=== PATIENT | male | born 1965 | race Caucasian/White ===

== ENCOUNTER 2017-07-17 14:18 | Emergency (ER) ==
[2017-07-17 14:26] VITALS: TEMP 98; BMI 32.1
[2017-07-17 14:41] VITALS: BP 166/95
[2017-07-17] MEDS ORDERED: LIDOCAINE HCL 1% SDV SUBCUT STA (14:47)
[2017-07-17] MEDS ORDERED: LIDOCAINE HCL 1% SDV ONE (14:47)
--- NOTE | 2017-07-17 14:48 | ED.PDOC ---
General ED Provider: Dr. SOPHIE PRADO Chief Complaint: Head Injury Stated Complaint: Fell striking head on pavement. Forehead laceration with bleeding. Bandaged. NO LOC. NO Nausea or vomiting. Time Seen by Physician: 14:35 Mode of Arrival: Walk-In Information Source: Patient Exam Limitations: No limitations Referred to ED by: Other Nursing and Triage Documentation Reviewed and Agree: Yes Reviewed sepsis parameters & appropriate labs ordered?: Yes System Inflammatory Response Syndrome: Not Applicable Sepsis Protocol: For patient's 13 years and over: Temp is 96.8 and below OR 101 and greater Pulse >90 BPM Resp >20/minute Acutely Altered Mental Status Are patient's symptoms suggestive of a new infection, such as: -Pneumonia -Skin, Soft Tissue -Endocarditis -UTI -Bone, Joint Infection -Implantable Device -Acute Abdominal Infection -Wound Infection -Meningitis -Blood Stream Catheter Infection -Unknown System Inflammatory Response Syndrome: Not Applicable Trauma/Injury Complaint Exam - Trauma Complaint/Exam Location of Pain or Injury: Reports: Head (forehead) Mechanism of Injury: Reports: Fall (Tripped falling forward stiking forehead on concrete pavement. Denies LOC) Onset/Duration: 1 hr Symptoms Are: Still present Timing of Treatment: Immediate Initial Severity: Moderate Current Severity: Mild Character: Reports: Dull, Burning Aggravating: Reports: None Alleviating: Reports: Rest Associated Signs and Symptoms: Reports: Bleeding, Swelling. Denies: LOC, Confusion, Memory loss, Lethargy, Vomiting, Bruising, Extremity disuse, Painful respiration, Dysphagia, Hemoptysis Related History: Denies: Similar episode, Alcohol abuse, Drug abuse, Alleged assault, Anticoagulants, Occupational injury Review of Systems - Review Of Systems Constitutional: Reports: No symptoms Eyes: Reports: No symptoms Ears, Nose, Mouth, Throat: Reports: No symptoms Respiratory: Reports: No symptoms Cardiac: Reports: No symptoms GI: Reports: No symptoms : Reports: No symptoms Musculoskeletal: Reports: No symptoms Skin: Reports: Other (Laceratation ) Neurological: Reports: Headache Endocrine: Reports: No symptoms Hematologic/Lymphatic: Reports: No symptoms All Other Systems: Reviewed and Negative Past Medical History - Past Medical History Endocrine: Reports: None Cardiovascular: Reports: None Respiratory: Reports: None Hematological: Reports: None Gastrointestinal: Reports: None Genitourinary: Reports: None Neuro/Psych: Reports: None Musculoskeletal: Reports: None Cancer: Reports: None - Surgical History General Surgical History: Reports: None - Family History Family History: Reports: None - Social History Smoking Status: Never smoker Hx Substance Use: No Alcohol Screening: Occasionally Lives: With family - Immunizations Tetanus Shot up to Date: Yes Physical Exam - Physical Exam Appearance: Well-appearing, Well-nourished Ill-appearing: Mild Pain Distress: Moderate Eyes: THU, EOMI, Conjunctiva clear ENT: Ears normal, Nose normal, Oropharynx normal Respiratory: Airway patent, Breath sounds clear, Breath sounds equal, Respirations nonlabored Cardiovascular: RRR, Pulses normal, No rub, No murmur GI/: Soft, Nontender, No masses, Bowel sounds normal, No Organomegaly Musculoskeletal: Normal strength, ROM intact, No edema, No calf tenderness Skin: Warm, Dry (Linear laceration lt forehead 2.5 cm) Neurological: Sensation intact, Motor intact, Reflexes intact, Cranial nerves intact, Alert, Oriented Psychiatric: Affect appropriate Interpretation - Radiology Interpretation Radiology Interpretation By: Radiologist Radiology Results: No acute changes Exam Interpreted: CT Scan (HEAD) Procedures - Laceration/Wound Repair Forehead Wound Description: Linear Wound Length (cm): 2.5 Wound Width: 1-2 mm Wound Depth: superficial Wound Explored: Clean Wound Irrigated: Yes Wound Prep: Saline, Hibiclens, Betadine Anesthesia: Lidocaine Wound Repaired With: Sutures Suture Size and Type: 5-0 Nylon Number of Sutures: 4 Layer Closure?: No Sterile Dressing Applied?: Yes Critical Care Note - Critical Care Note Total Time (mins): 0 Course - Course Orders, Labs, Meds: Orders Category Date Time Status Lidocaine HCl/Pf [Lidocaine HCl 1% Sdv] MEDS 07/17/17 14:47 Discontinued 5 ml .ROUTE .STK-MED ONE Lidocaine HCl/Pf [Lidocaine HCl 1% Sdv] MEDS 07/17/17 14:47 Discontinued 5 ml SUBCUT ONCE STA CT HEAD W/O CONTRAST Stat RADS 07/17/17 15:15 Completed Medications Discontinued Medications Generic Name Dose Route Start Last Admin Trade Name Freq PRN Reason Stop Dose Admin Lidocaine HCl 5 ml 07/17/17 14:47 07/17/17 14:50 Lidocaine Hcl 1% Sdv SUBCUT 07/17/17 14:48 5 ml ONCE STA Administration Vital Signs: Temp Pulse Resp BP Pulse Ox 07/17/17 14:40 18 166/95 H 07/17/17 14:20 98.0 F 83 20 196/112 H 98 Departure - Departure Time of Disposition: 15:45 Disposition: HOME SELF-CARE Discharge Problem: Laceration, Closed head injury Instructions: Laceration (ED), Care For Your Stitches (DC), Head Injury (ED) Condition: Good Pt referred to PMD for follow-up: Yes IPMP verified?: No Allergies/Adverse Reactions: Allergies morphine Adverse Reaction (Verified 07/17/17 14:20) Hives Home Medications: Ambulatory Orders 1 [No Reported Medications] 07/17/17 Transfer Form Completed: No Disposition Discussed With: Patient, Family
--- NOTE | 2017-07-17 15:50 | CT ---
EXAM: CT BRAIN HISTORY: Closed head injury, forehead laceration TECHNIQUE: CT brain without intravenous contrast. 5-mm axial sections with Reformations. COMPARISON: 02/22/2015 FINDINGS: Brain is unremarkable without evidence of hemorrhage or large vessel distribution recent ischemic in farction. There is no suggestion of acute hydrocephalus or subdural fluid collection. No mass or ma ss effect. Cranium is within normal limits. Mastoid processes are aerated. The visualized paranasal sinuses a re clear. IMPRESSION: No acute intracranial process.
== END 2017-07-17 16:25 | disposition home or self-care (01) ==
LOC: ED 14:18
DX: S01.81XA Laceration without foreign body of other part of head, initial encounter (principal); W19.XXXA Unspecified fall, initial encounter
CPT/HCPCS: 99283

== ENCOUNTER 2017-07-21 21:47 | Emergency (ER) ==
[2017-07-21 21:54] VITALS: BP 178/100; TEMP 97.4; BMI 31.7
--- NOTE | 2017-07-21 22:12 | ED.PDOC ---
General ED Provider: Dr. KYUNG DOMINGUEZ Chief Complaint: Hypertension Stated Complaint: Patientis a 51 year old male who states he has a history of HTN and has been on lisinopril for while he was not taking it consistently untill the last 5 days. States that his blood pressure has been up and down mostly > 185/125 today took an extra 20mg of lisinopril at 6 pm. His usual dose dose is 20mg daily in the AM. states that he has been stressed at work recently. Time Seen by Physician: 22:10 Mode of Arrival: Walk-In Information Source: Patient, Family Exam Limitations: No limitations Nursing and Triage Documentation Reviewed and Agree: Yes Reviewed sepsis parameters & appropriate labs ordered?: No System Inflammatory Response Syndrome: Not Applicable Sepsis Protocol: For patient's 13 years and over: Temp is 96.8 and below OR 101 and greater Pulse >90 BPM Resp >20/minute Acutely Altered Mental Status Are patient's symptoms suggestive of a new infection, such as: -Pneumonia -Skin, Soft Tissue -Endocarditis -UTI -Bone, Joint Infection -Implantable Device -Acute Abdominal Infection -Wound Infection -Meningitis -Blood Stream Catheter Infection -Unknown System Inflammatory Response Syndrome: Not Applicable Review of Systems - Review Of Systems Constitutional: Reports: No symptoms Eyes: Reports: No symptoms Ears, Nose, Mouth, Throat: Reports: No symptoms Respiratory: Reports: No symptoms Cardiac: Reports: Lightheadedness. Denies: Chest pain, Irregular heart rate GI: Reports: No symptoms : Reports: No symptoms Musculoskeletal: Reports: No symptoms Skin: Reports: No symptoms Neurological: Reports: Anxiety Endocrine: Reports: No symptoms Hematologic/Lymphatic: Reports: No symptoms All Other Systems: Reviewed and Negative Past Medical History - Past Medical History Endocrine: Reports: None Cardiovascular: Reports: Hypertension Respiratory: Reports: None Hematological: Reports: None Gastrointestinal: Reports: None Genitourinary: Reports: None Neuro/Psych: Reports: None Musculoskeletal: Reports: None Cancer: Reports: None - Surgical History General Surgical History: Reports: Appendectomy, Cholecystectomy - Family History Family History: Reports: None - Social History Smoking Status: Never smoker Hx Substance Use: No Alcohol Screening: None - Immunizations Tetanus Shot up to Date: Yes Physical Exam - Physical Exam Appearance: Well-appearing, No pain distress, Well-nourished Eyes: THU, EOMI, Conjunctiva clear ENT: Ears normal, Nose normal, Oropharynx normal Respiratory: Airway patent, Breath sounds clear, Breath sounds equal, Respirations nonlabored Cardiovascular: RRR, Pulses normal, No rub, No murmur GI/: Soft, Nontender, No masses, Bowel sounds normal, No Organomegaly Musculoskeletal: Normal strength, ROM intact, No edema, No calf tenderness Skin: Warm, Dry, Normal color Neurological: Sensation intact, Motor intact, Reflexes intact, Cranial nerves intact, Alert, Oriented Psychiatric: Affect appropriate, Mood appropriate Interpretation - EKG Interpretation Time of EKG #1: 23:03 Rate: Normal Rhythm: Sinus Ectopy: None Critical Care Note - Critical Care Note Total Time (mins): 35 (managment of uncontrolled hypertesion. ) Course - Course Hematology/Chemistry: 07/21/17 23:04 Orders, Labs, Meds: Lab Review 07/21/17 23:04 WBC 6.87 RBC 4.66 L Hgb 12.7 L Hct 36.6 L MCV 78.5 L MCH 27.3 MCHC 34.7 RDW Coeff of Gary 14.0 Plt Count 171 Immature Gran % (Auto) 0.3 Neut % (Auto) 65.8 Lymph % (Auto) 23.6 Nicholas % (Auto) 8.0 Eos % (Auto) 1.9 Baso % (Auto) 0.4 Immature Gran # (Auto) 0.0 Neut # (Auto) 4.5 Lymph # (Auto) 1.6 Nicholas # (Auto) 0.6 Eos # (Auto) 0.1 Baso # (Auto) 0.0 Orders Category Date Time Status EKG-(ED ONLY) Stat CARDIO 07/21/17 22:53 Ordered CBC W/ AUTO DIFF Stat LAB 07/21/17 23:04 Completed COMPREHENSIVE METABOLIC PANEL Stat LAB 07/21/17 23:04 Received TROPONIN I Stat LAB 07/21/17 23:04 Received Hydralazine HCl [Apresoline] MEDS 07/21/17 22:50 Discontinued 10 mg PO ONCE STA Medications Discontinued Medications Generic Name Dose Route Start Last Admin Trade Name Freq PRN Reason Stop Dose Admin Hydralazine HCl 10 mg 07/21/17 22:50 07/21/17 23:00 Apresoline PO 07/21/17 22:51 10 mg ONCE STA Administration Vital Signs: Temp Pulse Resp BP Pulse Ox 07/21/17 22:01 178/100 H 07/21/17 21:47 97.4 F L 82 15 178/100 H 97 Departure - Departure Time of Disposition: 23:07 Disposition: HOME SELF-CARE Discharge Problem: Hypertension Qualifiers: Hypertension type: essential hypertension Qualified Code(s): I10 - Essential ( primary) hypertension Instructions: Hypertension (ED) Condition: Stable Pt referred to PMD for follow-up: Yes IPMP verified?: Yes Additional Instructions: CONTINUE TAKING YOU HOME BLOOD PRESSURE MEDICATION AND CHECK BLOOD PRESSURE EVERY DAY. FOLLOW UP WITH YOU PCP IN 3-5 DAYS WITH YOU BLOOD PRESSURE LOGS. TAKE HYDRALAZINE ONLY WHEN YOUR BLOOD PRESSURE IS >190/90 RETURN TO THE ER IF YOU EXPERIENCE HEADACHES, CHEST PAIN OR BLOODY URINATION. Prescriptions: Hydralazine HCl [Apresoline] 10 mg PO Q6H PRN #30 tablet PRN Reason: Hypertensive Emergency Allergies/Adverse Reactions: Allergies morphine Adverse Reaction (Verified 07/21/17 21:49) Hives Home Medications: Ambulatory Orders Cephalexin [Keflex] 500 mg PO BID #14 capsule 07/17/17 Hydralazine HCl [Apresoline] 10 mg PO Q6H PRN #30 tablet 07/21/17 Lisinopril [Zestril] 20 mg PO DAILY 07/21/17 Disposition Discussed With: Patient, Family
[2017-07-21] MEDS ORDERED: APRESOLINE PO STA (22:50)
== END 2017-07-21 23:38 | disposition home or self-care (01) ==
LOC: ED 21:47
DX: I10 Essential (primary) hypertension (principal); Z79.899 Other long term (current) drug therapy
CPT/HCPCS: 36415; 80053; 84484; 85025; 93005; 93010; 99283

== ENCOUNTER 2017-08-06 18:16 | Outpatient (CLI) | END 2017-08-06 18:17 | disposition short-term general hospital (02) | LOC: AMBL 18:16 | PROVIDERS: ATTEND Family Medicine | DX: R07.9 Chest pain, unspecified (principal); I10 Essential (primary) hypertension ==

== ENCOUNTER 2017-09-08 09:50 | Outpatient (CLI) | END 2017-09-08 10:01 | disposition short-term general hospital (02) | LOC: AMBL 09:50 | PROVIDERS: ATTEND Family Medicine | DX: R07.9 Chest pain, unspecified (principal); R55 Syncope and collapse; R42 Dizziness and giddiness; I10 Essential (primary) hypertension ==

== ENCOUNTER 2017-09-25 20:25 | Emergency (ER) ==
[2017-09-25 20:28] VITALS: TEMP 97.7; BMI 31.8
[2017-09-25] MEDS ORDERED: ZOFRAN 4 MG/2 ML IM STA (20:36)
[2017-09-25] MEDS ORDERED: TORADOL IM STA (20:36)
--- NOTE | 2017-09-25 21:30 | CT ---
Exam: CT of the abdomen pelvis without contrast History: Left renal colic Technique: [address] of the abdomen and pelvis without intravascular contrast FINDINGS: The lung bases are clear. No significant liver abnormality. The adrenals, pancreas and spl een are unremarkable. The stomach and hiatus are unremarkable.Prior cholecystectomy. Exophytic 3 cm cyst of the right kidney. There is a punctate nonobstructing calculus in the right kidney. The kidney s and proximal collecting system are unremarkable otherwise. There is a 0.5 x 0.5 cm calculus at the expected location of the left mid ureter there is no hydronephrosis, hydroureter or inflammation. T he appendix is not seen. Bowel loops demonstrate normal caliber. No inflamatory change seen in the me sentery or retroperitoneum. Pelvic genitourinary structures appear normal. Pelvic bowel loops are unremarkable. No inflammatory c hange in the pelvic fat. No acute abnormality of the abdominal or pelvic skeleton. Impression: 1. Left distal to mid ureteral 5 mm calculus versus vascular calcification. There is no hydronephro sis or hydroureter. No prior study for comparison. 2. Single punctate nonobstructing calculus in the right kidney 3. No acute findings of the abdomen or pelvis otherwise.
[2017-09-25] MEDS ORDERED: DILAUDID 2 MG/ML SYRINGE IM STA (21:44)
--- NOTE | 2017-09-25 21:47 | ED.PDOC ---
General ED Provider: Dr. KATE MIRZA Chief Complaint: Kidney Stone Stated Complaint: Came for the abdominal pain, on the left side, was seen at [facility] on September 08, Ct scan showed 6/9 mm urater stone. started hurting today Time Seen by Physician: 21:45 Mode of Arrival: Walk-In Information Source: Patient, Family Nursing and Triage Documentation Reviewed and Agree: Yes Reviewed sepsis parameters & appropriate labs ordered?: Yes System Inflammatory Response Syndrome: Not Applicable Sepsis Protocol: For patient's 13 years and over: Temp is 96.8 and below OR 101 and greater Pulse >90 BPM Resp >20/minute Acutely Altered Mental Status Are patient's symptoms suggestive of a new infection, such as: -Pneumonia -Skin, Soft Tissue -Endocarditis -UTI -Bone, Joint Infection -Implantable Device -Acute Abdominal Infection -Wound Infection -Meningitis -Blood Stream Catheter Infection -Unknown GI Complaint Exam - Abdominal Pain Complaint/Exam Onset: Sudden Symptoms Are: Still present Timing: Constant Initial Severity: Severe Current Severity: Severe Location of Pain: LLQ Radiates To: Reports: Back, Flank Character: Reports: Aching, Throbbing Aggravating: Reports: Movement Alleviating: Reports: None Associated Signs and Symptoms: Denies: Diaphoresis, Fever, Cough, Chest pain, Dizziness, Back pain, Constipation, Blood in stool, Dysuria, Urinary frequency, Decreased urine output, Decreased appetite, Discharge, Nausea, Vomiting, Diarrhea, Decreased activity Related History: Reports: Similar episode AAA Risk Factors: Reports: None Cardiac Risk Factors: Reports: None Testicular Torsion Risk Factors: Reports: None Surgical Obstruction Risk Factors: Reports: None Related Surgical History: Reports: None Abdominal Findings: Absent: Pulsatile mass, Abdominal distention, Unequal femoral pulses Differential Diagnoses: Ureteral Stone Review of Systems - Review Of Systems Constitutional: Reports: No symptoms Eyes: Reports: No symptoms Ears, Nose, Mouth, Throat: Reports: No symptoms Respiratory: Reports: No symptoms Cardiac: Reports: No symptoms GI: Reports: Abdominal pain, Nausea : Reports: No symptoms Musculoskeletal: Reports: No symptoms Skin: Reports: No symptoms Neurological: Reports: No symptoms Endocrine: Reports: No symptoms Hematologic/Lymphatic: Reports: No symptoms All Other Systems: Reviewed and Negative Past Medical History - Past Medical History Previously Healthy: Yes Endocrine: Reports: None Cardiovascular: Reports: Hypertension Respiratory: Reports: None Hematological: Reports: None Gastrointestinal: Reports: None Genitourinary: Reports: None Neuro/Psych: Reports: None Musculoskeletal: Reports: None Cancer: Reports: None - Surgical History General Surgical History: Reports: Appendectomy, Cholecystectomy - Family History Family History: Reports: None - Social History Smoking Status: Never smoker Hx Substance Use: No Alcohol Screening: None - Immunizations Tetanus Shot up to Date: Yes Physical Exam - Physical Exam Appearance: Ill-appearing, Obese Eyes: THU, EOMI, Conjunctiva clear ENT: Ears normal, Nose normal, Oropharynx normal Respiratory: Airway patent, Breath sounds clear, Breath sounds equal, Respirations nonlabored Cardiovascular: RRR, Pulses normal, No rub, No murmur GI/: Soft, Tender Musculoskeletal: Normal strength, ROM intact, No edema, No calf tenderness Skin: Warm, Dry, Normal color Neurological: Sensation intact, Motor intact, Reflexes intact, Cranial nerves intact, Alert, Oriented Psychiatric: Affect appropriate, Mood appropriate Re-Evaluation - Re-Evaluation Time of Re-Evaluation: 21:50 Status: Improved Critical Care Note - Critical Care Note Total Time (mins): 30 Course - Course Hematology/Chemistry: 09/25/17 20:40 09/25/17 20:40 Orders, Labs, Meds: Lab Review 09/25/17 09/25/17 09/25/17 20:40 20:40 21:09 WBC 5.74 RBC 4.72 Hgb 12.6 L Hct 37.8 L MCV 80.1 MCH 26.7 L MCHC 33.3 RDW Coeff of Gary 13.9 Plt Count 174 Immature Gran % (Auto) 0.2 Neut % (Auto) 59.6 Lymph % (Auto) 31.2 Catron % (Auto) 6.3 Eos % (Auto) 2.4 Baso % (Auto) 0.3 Immature Gran # (Auto) 0.0 Neut # (Auto) 3.4 Lymph # (Auto) 1.8 Catron # (Auto) 0.4 Eos # (Auto) 0.1 Baso # (Auto) 0.0 Sodium 137 Potassium 4.1 Chloride 104 Carbon Dioxide 25 Anion Gap 12.1 BUN 13 Creatinine 1.12 H Estimated GFR (MDRD) 69.00 BUN/Creatinine Ratio 11.60 Glucose 124 H Calcium 8.6 Total Bilirubin 0.7 AST 20 ALT 26 Alkaline Phosphatase 59 Total Protein 7.0 Albumin 3.6 Globulin 3.4 Albumin/Globulin Ratio 1.06 Urine Color Yellow Urine Clarity Clear Urine pH 5.0 Ur Specific [place] >=1.030 Urine Protein Negative Urine Glucose (UA) Negative Urine Ketones Negative Urine Blood 2+ Urine Nitrite Negative Urine Bilirubin Negative Urine Urobilinogen 0.2 Ur Leukocyte Esterase Negative Urine Microscopic RBC 0-2 Ur Squamous Epith Cells 0-2 Calcium Oxalate Crystal Trace Hyaline Casts 0-2 Urine Mucus Trace Orders Category Date Time Status CBC W/ AUTO DIFF Stat LAB 09/25/17 20:40 Completed COMPREHENSIVE METABOLIC PANEL Stat LAB 09/25/17 20:40 Completed URINALYSIS C & S IF INDICATED Stat LAB 09/25/17 21:09 Completed Hydromorphone HCl/Pf [Dilaudid 2 mg/ml Syringe] MEDS 09/25/17 21:44 Stat 2 mg IM ONCE STA Ketorolac Tromethamine [Toradol] MEDS 09/25/17 20:36 Discontinued 60 mg IM ONCE STA Ondansetron HCl/Pf [Zofran 4 mg/2 ml] MEDS 09/25/17 20:36 Discontinued 4 mg IM ONCE STA CT ABDOMEN/PELVIS WO CONTRAST Stat RADS 09/25/17 20:36 Completed Medications Discontinued Medications Generic Name Dose Route Start Last Admin Trade Name Freq PRN Reason Stop Dose Admin Hydromorphone HCl 2 mg 09/25/17 21:44 Dilaudid 2 Mg/Ml Syringe IM 09/25/17 21:45 ONCE STA Ketorolac Tromethamine 60 mg 09/25/17 20:36 09/25/17 20:43 Toradol IM 09/25/17 20:37 60 mg ONCE STA Administration Ondansetron HCl 4 mg 09/25/17 20:36 09/25/17 20:43 Zofran 4 Mg/2 Ml IM 09/25/17 20:37 4 mg ONCE STA Administration Vital Signs: Temp Pulse Resp BP Pulse Ox 09/25/17 20:26 97.7 F 81 18 153/96 H 98 Departure - Departure Time of Disposition: 21:47 Disposition: HOME SELF-CARE Discharge Problem: Kidney stone, Renal colic on left side Condition: Stable Pt referred to PMD for follow-up: Yes IPMP verified?: No Additional Instructions: Increase Hydration keep f/u with Urologist as scheduled. Prescriptions: Hydrocodone Bit/Acetaminophen [[place] 7.5-325] 1 each PO Q8H #10 tablet Tamsulosin HCl [Flomax] 0.4 mg PO DAILY #10 cap.er.24h Allergies/Adverse Reactions: Allergies morphine Adverse Reaction (Verified 09/25/17 20:29) Hives Home Medications: Ambulatory Orders Hydralazine HCl [Apresoline] 10 mg PO Q6H PRN #30 tablet 07/21/17 Lisinopril [Zestril] 20 mg PO DAILY 07/21/17 Hydrocodone Bit/Acetaminophen [[place] 7.5-325] 1 each PO Q8H #10 tablet 09/25/17 Tamsulosin HCl [Flomax] 0.4 mg PO DAILY #10 cap.er.24h 09/25/17 Disposition Discussed With: Patient, Family
[2017-09-25 21:55] VITALS: BP 143/89
== END 2017-09-25 22:02 | disposition home or self-care (01) ==
LOC: ED 20:25
DX: N20.0 Calculus of kidney (principal); I10 Essential (primary) hypertension
CPT/HCPCS: 36415; 80053; 81001; 85025; 96372; 99283